=== PATIENT | female | born 1995 | race Caucasian/White ===

== ENCOUNTER 2017-12-16 21:01 | Emergency (ER) | payer OTHER ==
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
[2017-12-17 02:09] VITALS: BP 133/70
--- NOTE | 2017-12-17 07:16 | RAD ---
INDICATION: Tailbone pain. COMPARISON: There are no prior studies available for comparison. TECHNIQUE: 5 views of the lumbar spine were obtained including lateral, oblique, AP and a coned-down lateral view of the lumbar sacral junction. FINDINGS: There is a mild scoliosis convex toward the left side. The vertebra are otherwise in normal alignment. No fracture is seen. Disc spaces appear maintained. IMPRESSION: NO EVIDENCE FOR FRACTURE.
--- NOTE | 2017-12-17 07:53 | RAD ---
INDICATION: Head injury, headache. COMPARISON: There are no prior studies available for comparison. TECHNIQUE: Contiguous axial sections of the brain were obtained from the skull base to the vertex without contrast. FINDINGS: There is a ventricular shunt catheter entering from the right frontal approach. The catheter tip projects over the frontal horn of the left lateral ventricle. The ventricles appear nondistended. No significant focal abnormality or mass effect is seen. There is no evidence for hemorrhage. No significant focal osseous abnormality is seen. The visualized portion of the paranasal sinuses and mastoid air cells appear clear. IMPRESSION: 1. VENTRICULAR SHUNT CATHETER IN PLACE. 2. NO EVIDENCE FOR ACUTE FINDING.
== END 2017-12-16 23:36 | disposition home or self-care (01) ==
LOC: ED 21:01
DX: S09.90XA Unspecified injury of head, initial encounter (principal); W19.XXXA Unspecified fall, initial encounter; Y92.811 Bus as the place of occurrence of the external cause; C81.90 Hodgkin lymphoma, unspecified, unspecified site; K58.9 Irritable bowel syndrome, unspecified
CPT/HCPCS: 70450; 72110; 99282